=== PATIENT | male | born 1960 | race Caucasian/White ===

== ENCOUNTER 2016-10-18 08:42 | Emergency (ER) | payer OTHER ==
[~2016-10-18] VITALS: Ht 185.4 cm; Wt 104.3 kg
[2016-10-18] MEDS ORDERED: FENTANYL PF 100 MCG/2 ML VIAL. IV PRN (09:00)
--- NOTE | 2016-10-18 09:03 | ED.ADGEN ---
Adult General Chief Complaint Chief Complaint: TRAUMA ALERT HPI HPI Patient is a 55 year old man, with no significant past no history, presents emergency Department with complaint of pain to his left fifth digit. Patient states that he was at work, when the ferguson of a forklift fell down trapping his finger. He states occurred about 20-30 minutes prior to his evaluation the emergency department. Patient denies any other injuries. He is not certain when his last tetanus booster was administered. He believes it was more than 10 years ago. Patient noted to have significant maceration of the distal aspect of the left fifth digit. He is right-handed. He is complaining of 1-10 pain at this time, states he does have some numbness in the tip of the finger. Denies any weakness. Review of Systems Review of Systems Constitutional: Denies fever or chills. [] Eyes: Denies change in visual acuity. [] HENT: Denies nasal congestion or sore throat. [] Respiratory: Denies cough or shortness of breath. [] Cardiovascular: Denies chest pain or edema. [] GI: Denies abdominal pain, nausea, vomiting, bloody stools or diarrhea. [] : Denies dysuria. [] Musculoskeletal: Denies back pain, pain in the distal aspect of the left fifth digit. Integument: Denies rash. [] Neurologic: Denies headache, focal weakness or sensory changes. [] Endocrine: Denies polyuria or polydipsia. [] Lymphatic: Denies swollen glands. [] Psychiatric: Denies depression or anxiety. [] Current Medications Current Medications Current Medications Medications (Trade) Dose Ordered Sig/Eliel Start Time Stop Time Status Last Admin Dose Admin Bupivacaine HCl (Marcaine 0.5%) 50 ml 1X ONCE 10/18/16 10:00 10/18/16 10:01 DC 10/18/16 09:52 50 ML Diphtheria/ Tetanus/Acell Pertussis (Boostrix) 0.5 ml ONCE ONCE 10/18/16 09:30 10/18/16 09:31 DC 10/18/16 09:24 0.5 ML Fentanyl Citrate (Fentanyl 2ml Vial) 25 mcg PRN Q15MIN PRN 10/18/16 09:00 10/18/16 11:55 DC 10/18/16 09:21 25 MCG Allergies Allergies Allergies Coded Allergies Type Severity Reaction Last Updated Verified No Known Drug Allergies 10/18/16 No Physical Exam Physical Exam Constitutional: Well developed, well nourished, no acute distress, non-toxic appearance. [] HENT: Normocephalic, atraumatic, bilateral external ears normal, oropharynx moist, no oral exudates, nose normal. [] Eyes: PERRLA, EOMI, conjunctiva normal, no discharge. [] Neck: Normal range of motion, no tenderness, supple, no stridor. [] Cardiovascular:Heart rate regular rhythm, no murmur, S1, S2, rubs or gallops. [] Lungs & Thorax: Bilateral breath sounds clear to auscultation, no wheezing, rhonchi, rales. [] Abdomen: Bowel sounds normal, soft, no tenderness, no masses, no pulsatile masses. [] Skin: Warm, dry, no erythema, no rash. [] Back: No tenderness, no CVA tenderness. [] Extremities: Patient tenderness to palpation noted at the dorsal aspect of the left fifth digit, distal to the DIP joint, with significant maceration of the finger pad, nail is intact as his nail bed, patient has full range of motion with cardinal motions intact, no cyanosis, no clubbing, ROM intact, no edema. [ ] Neurologic: Alert and oriented X 3, normal motor function, normal sensory function, no focal deficits noted. [] Psychologic: Affect normal, judgement normal, mood normal. [] Current Patient Data Vital Signs Vital Signs Date Time Temp Pulse Resp B/P Pulse Ox O2 Delivery O2 Flow Rate FiO2 10/18/16 11:29 79 16 156/102 95 Room Air 10/18/16 08:45 97.6 97.6 EKG EKG Not indicated [] Radiology/Procedures Radiology/Procedures [facility] [address] [place] [address] IMAGING REPORT Signed PATIENT: LADONNA FERNANDEZ ACCOUNT: [id number] : 1960 LOCATION: ER AGE: 55 SEX: M EXAM STATUS: PRE ER ORD. PHYSICIAN: DEDRICK LIN APRN REASON: left pinky finger pain PROCEDURE: FINGER(S) LEFT Left little finger, 3 views, 10/18/2016: History: Injury There is deformity of the soft tissues at the tip of the little finger. No underlying acute fracture or dislocation is identified. There is an old healed fracture of the fifth metacarpal. IMPRESSION: No acute bony abnormality is detected. DICTATED and SIGNED BY: TRA SHEPPARD MD DATE: 10/18/16914 CC: DEDRICK LIN APRN ~ Indication: Left pinky finger laceration from a crush injury Procedure:The patient was placed in the appropriate position digital block was performed on the left pinky finger successfully. The finger was cleaned with 250 ML of normal saline and Betadine. The finger was closed with approximately 25 interrupted sutures using 4.0 and 5. 0 Vicryl. The area was then covered with gauze. Total repaired wound length: Crush injury laceration approx 8 cm Other Items: none The patient tolerated the procedure well Complications: none Laceration repair done by Dedrick Lin [employer] L[employer] MULE OPERATOR Course & Med Decision Making Course & Med Decision Making Pertinent Labs and Imaging studies reviewed. (See chart for details) I initially evaluated the patient, patient noted to have crush injury of the left pinky finger, with maceration of the finger pad of the distal fifth digit. No evidence of bony involvement, cardinal motions intact. Laceration closure was performed by nurse practitioner Dedrick Lin as documented. Patient has crush injury to the left pinky finger. X-ray of the left pinky finger is negative for any acute findings. He was given tetanus in the ED. Laceration was closed by Dedrick Lin [employer] LIFT MULE OPERATOR, patient was discharged with Keflex. Provided wound care instructions and return precautions. Follow-up with PCP in one week. Dragon Disclaimer Dragon Disclaimer This electronic medical record was generated, in whole or in part, using a voice recognition dictation system. Departure Impression: Primary Impression: Crushing injury of finger of left hand Disposition: 01 HOME, SELF-CARE Condition: IMPROVED Scripts Hydrocodone/Apap 5-325 ([place] Patent 5-325 Tablet)1 Each Tablet1-2 Tab PO Q4-6HRS #20 TAB Prov:DEDRICK LIN APRN 10/18/16 Cephalexin 500 Mg Tablet1 Tab PO QID #40 TAB Prov:DEDRICK LIN APRN 10/18/16 ROCKY TY DO Oct 18, 2016 09:03 DEDRICK LIN APRN Oct 18, 2016 11:05
--- NOTE | 2016-10-18 09:19 | RAD ---
Left little finger, 3 views, 10/18/2016: History: Injury There is deformity of the soft tissues at the tip of the little finger. No underlying acute fracture or dislocation is identified. There is an old healed fracture of the fifth metacarpal. IMPRESSION: No acute bony abnormality is detected.
[2016-10-18] MEDS ORDERED: DIPHTH,PERTUSS(ACELL),TET TOX 0.5 ML DISP.SYRIN. VAX IM ONE (09:30)
[2016-10-18] MEDS ORDERED: BUPIVACAINE 0.5% 50 ML VIAL. IJ ONE (10:00)
[2016-10-18] MEDS ORDERED: HYDR-971 PO (11:10)
[2016-10-18] MEDS ORDERED: CEPH500T PO (11:10)
[2016-10-18 11:29] VITALS: BP 156/102
== END 2016-10-18 11:32 | disposition home or self-care (01) ==
LOC: ER 08:42
DX: S67.22XA Crushing injury of left hand, initial encounter (principal); S67.197A Crushing injury of left little finger, initial encounter; W20.8XXA Other cause of strike by thrown, projected or falling object, initial encounter; Y93.89 Activity, other specified; Y92.69 Other specified industrial and construction area as the place of occurrence of the external cause; Y99.8 Other external cause status
CPT/HCPCS: 12004; 73140; 90471; 90715; 96374; 99284; J3010; J3490